=== PATIENT | female | born 2000 | race Caucasian/White ===

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

== ENCOUNTER 2021-11-03 09:57 | Emergency (ER) | payer OTHER ==
[~2021-11-03] VITALS: Ht 165.1 cm; Wt 40.0 kg
[~2021-11-03 09:57] MED LIST: FERR325T23 PO; IBUP-2030 PO; PNV11TAB5 PO
[2021-11-03 12:21] VITALS: BP 126/65
== END 2021-11-03 12:22 | disposition home or self-care (01) ==
LOC: ER 10:09
DX: F32.A Depression, unspecified (principal); F41.9 Anxiety disorder, unspecified; F12.10 Cannabis abuse, uncomplicated
CPT/HCPCS: 99281